=== PATIENT | male | born 1965 | race Caucasian/White ===

== ENCOUNTER 2016-10-15 06:03 | Inpatient (IN) | payer OTHER ==
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
[~2016-10-15 06:03] MED LIST: BUPIVACAINE 0.25% (MDV) 20 ML in SODIUM CHLORIDE 0.9% FLUSH 20 ML IF PRN; BUPIVACAINE 0.25% (MDV) 24 ML, MORPHINE SULFATE 8 MG, EPINEPHRINE 0.3 MG in SODIUM CHLO... IF PRN; CEFAZOLIN SODIUM 2 GRAM PREMIX 100 ML IV PRN; CELECOXIB 200 MG CAPSULE PO ONE; CLONIDINE HCL 0.1 MG/24 HR (7 DAY PATCH) TD SCH; FAMOTIDINE 20 MG TABLET PO ONE; GABAPENTIN 600 MG TABLET PO ONE; IV START KIT ONE; LACTATED RINGERS 1,000 ML ONE; ONDANSETRON 4 MG/2ML 2 ML VIAL IV ONE; OXYCODONE HCL 10 MG TAB.SR PO ONE; POLYMYXIN B SULFATE 500,000 UNITS, BACITRACIN 25,000 UNITS in SODIUM CHLORIDE 3 L IRRIG... IR PRN; TRAMADOL HCL 50 MG TABLET PO ONE; TRANEXAMIC ACID 1,000 MG in SODIUM CHLORIDE 0.9% 100 ML IV PRN
[2016-10-15] MEDS ORDERED: ONDANSETRON 4 MG/2ML 2 ML VIAL ONE ×2 (06:12→07:03)
[2016-10-15] MEDS ORDERED: GABAPENTIN 600 MG TABLET ONE (06:12)
[2016-10-15] MEDS ORDERED: CLONIDINE HCL 0.1 MG/24 HR (7 DAY PATCH) TD ONE (06:12)
[2016-10-15] MEDS ORDERED: OXYCODONE HCL 10 MG TAB.SR PO ONE (06:12)
[2016-10-15] MEDS ORDERED: FAMOTIDINE 20 MG TABLET ONE (06:12)
[2016-10-15] MEDS ORDERED: TRAMADOL HCL 50 MG TABLET ONE (06:12)
[2016-10-15] MEDS ORDERED: CELECOXIB 200 MG CAPSULE ONE (06:12)
[2016-10-15] MEDS ORDERED: CEFAZOLIN SODIUM 2 GRAM PREMIX 100 ML IV ONE (06:13)
[2016-10-15] MEDS ORDERED: LIDOCAINE 1% (PRES FREE) 5 ML VIAL ONE (06:41)
[2016-10-15] MEDS ORDERED: BUPIVACAINE 0.75% SPINAL AMPUL 2 ML ONE (07:03)
[2016-10-15] MEDS ORDERED: METOCLOPRAMIDE HCL 5 MG/ML 2ML VIAL ONE (07:03)
[2016-10-15] MEDS ORDERED: LIDOCAINE 2% (PRES FREE) 5 ML VIAL ONE ×2 (07:03→09:11)
[2016-10-15] MEDS ORDERED: MIDAZOLAM HCL 1 MG/ML 2ML VIAL ONE ×2 (07:03→07:39)
[2016-10-15] MEDS ORDERED: PROPOFOL 40 ML IV ONE ×2 (07:03→11:09)
[2016-10-15] MEDS ORDERED: KETAMINE HCL UD SYRINGE 100 MG/2 ML IV ONE ×2 (07:03→09:04)
[2016-10-15] MEDS ORDERED: GLYCOPYRROLATE 0.2 MG/ML 1ML VIAL ONE (07:03)
[2016-10-15] MEDS ORDERED: DEXAMETHASONE SOD PHOS 4 MG/1 ML VIAL ONE (07:03)
[2016-10-15] MEDS ORDERED: FENTANYL 100 MCG/2 ML VIAL ONE (07:04)
[2016-10-15] MEDS ORDERED: SPINAL PROCEDURAL TRAY 1 EACH ONE (07:35)
[2016-10-15 07:48] LABS: URINE BILIRUBIN NEGATIVE (NEGATIVE); URINE BLOOD NEGATIVE (NEGATIVE); URINE GLUCOSE (UA) NEGATIVE (NEGATIVE); URINE LEUKOCYTE ESTERASE NEGATIVE (NEGATIVE); URINE NITRITE NEGATIVE (NEGATIVE); URINE PROTEIN NEGATIVE (NEGATIVE); URINE UROBILINOGEN NORMAL (0-1 mg/dl)
[2016-10-15 07:51] LABS: URINE APPEARANCE CLEAR; URINE COLOR YELLOW
[2016-10-15] MEDS ORDERED: LACTATED RINGERS 1,000 ML ONE ×2 (07:55→14:33)
[2016-10-15] MEDS ORDERED: PROPOFOL 20 ML IV ONE ×4 (09:10→09:55)
[2016-10-15] MEDS ORDERED: FENTANYL 5 ML ONE (09:35)
[2016-10-15] MEDS ORDERED: PROMETHAZINE HCL 25 MG/ML VIAL IM PRN (10:49)
[2016-10-15] MEDS ORDERED: FENTANYL 100 MCG/2 ML VIAL IV PRN (10:49)
[2016-10-15] MEDS ORDERED: NALOXONE HCL 0.4 MG/ML VIAL IV PRN (10:49)
[2016-10-15] MEDS ORDERED: MEPERIDINE 25 MG/ML SYRINGE IV PRN (10:49)
[2016-10-15] MEDS ORDERED: ATROPINE SULFATE 0.4 MG/1 ML VIAL IV PRN (10:49)
[2016-10-15] MEDS ORDERED: HYDROMORPHONE HCL 1 MG/ML SYRINGE IV PRN (10:49)
[2016-10-15] MEDS ORDERED: ONDANSETRON 4 MG/2ML 2 ML VIAL IV PRN ×2 (10:49→15:05)
[2016-10-15] MEDS ORDERED: LACTATED RINGERS 1,000 ML IV SCH (11:00)
[2016-10-15] MEDS ORDERED: POLYMYXIN B SULFATE 500,000 UNITS, BACITRACIN 25,000 UNITS in SODIUM CHLORIDE 3 L IRRIG... IR PRN (11:13)
--- NOTE | 2016-10-15 11:53 | RAD ---
Exam: Single view right hip INDICATION: Intraoperative flatplate during right hip arthroplasty. FINDINGS: Single AP view of the right hip was obtained at 1051 hours and compared with a similar exam obtained at 1035 hours. Hardware is noted in the region of the acetabulum. Two surgical instruments overlie the pubic symphysis in multiple wires overlie the patient. This examination is otherwise limited for interpretation. IMPRESSION: Single intraoperative image of the right hip was obtained for Dr. Nielsen.
--- NOTE | 2016-10-15 11:54 | RAD ---
Exam: Single view right hip COMPARISON: 12/24/2015 INDICATION: Intraoperative flat view during right total hip arthroplasty. FINDINGS: A single portably obtained view of the right hip demonstrates interval osteotomy at the level of the femoral neck. There is hardware in the region of the acetabulum and 2 surgical instruments in the region of the pubic symphysis. Multiple wires overlie the patient. This examination is otherwise limited for interpretation. IMPRESSION: Single intraoperative view of the right hip was obtained for Dr. Nielsen.
--- NOTE | 2016-10-15 11:56 | RAD ---
Exam: Single view right hip INDICATION: Right total hip intraoperative flat plate #3. FINDINGS: A single AP view of the right hip was obtained at 1106 hours and compared with similar exams obtained same day at 1051 and 1035 hours. Acetabular component is present, and screw is likely present although there is a horizontal structure which obscures the screw. Two surgical instruments overlie the pubic symphysis and multiple wires overlie the patient. This examination is otherwise limited for interpretation. IMPRESSION: Single intraoperative image of the right hip was obtained for Dr. Nielsen.
[2016-10-15] MEDS ORDERED: VANCOMYCIN HCL 1 G/20 ML VIAL ONE (12:35)
--- NOTE | 2016-10-15 13:07 | PCMBPN ---
Brief Post Op Note: Date of Procedure: 10/15/16 Start Time: 0900 Preoperative Diagnosis: 1. right hip osteoarthritis Postoperative Diagnosis: 1. Same Procedure: right total hip arthroplasty Surgeon: Desmond Nielsen MD Assist: Jitendra Teague PA-C Anesthesia: Tru Nelson Findings: as above Condition: stable to PACU Complications: none IV Fluids: 3500 mLs of LR Urine Output: 270 mLs Estimated Blood Loss: 500 mLs Tourniquet Time: N/A Specimens: N/A Implants: Depuy [place] 62 mm cup, Trilock size 9 high offset stem, 40 mm +8.5 biolox head, +4/10 liner. Drains: N/A Desmond Nielsen MD
[2016-10-15] MEDS ORDERED: HYDROMORPHONE HCL 1 MG/ML SYRINGE ONE (14:10)
[2016-10-15] MEDS ORDERED: KETOROLAC TROMETHAMINE 30 MG/ML 1 ML VIAL IV PRN (15:05)
[2016-10-15] MEDS ORDERED: TRAMADOL HCL 50 MG TABLET PO PRN (15:05)
[2016-10-15] MEDS ORDERED: TRAZODONE HCL 50 MG TABLET PO PRN (15:05)
[2016-10-15] MEDS ORDERED: HYDROXYZINE PAMOATE 25 MG CAPSULE PO PRN (15:05)
[2016-10-15] MEDS ORDERED: CALCIUM CARBONATE 500 MG TAB.CHEW PO PRN (15:05)
[2016-10-15 15:28] VITALS: BMI 52.6
--- NOTE | 2016-10-15 15:34 | RAD ---
Exam: Single view pelvis COMPARISON: Intraoperative right hip exams same day and 12/24/2015 INDICATION: Right hip arthroplasty. FINDINGS: A single Sydnee view of the pelvis was obtained. Examination is limited due to patient body habitus. There are postsurgical changes of right hip arthroplasty. No pericomponent fracture is identified. Alignment is expected given the chronic remodeling of the right acetabulum seen previously. Skin wes are present. IMPRESSION: Expected postoperative appearance following right total hip arthroplasty.
[2016-10-15] MEDS ORDERED: NS IV PRN ×2 (15:40)
[2016-10-15] MEDS ORDERED: HETASTARCH 6% IV PRN ×2 (15:40)
[2016-10-15] MEDS: ACETAMINOPHEN 500 MG TABLET PO SCH ×2 (16:42→22:29)
[2016-10-15] MEDS ORDERED: PUMP TUBING ONE (16:50)
[2016-10-15] MEDS: SODIUM CHLOR 0.9% w 40mEq KCL 1,000 ML IV SCH (16:55)
[2016-10-15 17:21] LABS: ARTERIAL BLOOD GAS PCO2 45.1 mmHg (35.0-45.0); ARTERIAL BLOOD GAS pH 7.352 (7.350-7.450)
[2016-10-15 17:22] LABS: ARTERIAL BLOOD GAS BASE EXCESS -1.2 mmol/L (-2.0-2.0); ARTERIAL BLOOD GAS HCO3 24.5 mmol/L (22.0-28.0); ARTERIAL BLOOD GAS PO2 77.2 mmHg (80.0-90.0)
[2016-10-15] MEDS: CEFAZOLIN SODIUM 1 GRAM PREMIX 1 G in Premix (D5W) 50 ml 1 EACH IV SCH (17:53)
[2016-10-15] MEDS: PANTOPRAZOLE SODIUM 40 MG VIAL IV SCH (17:53)
[2016-10-15] MEDS ORDERED: IRON SUCROSE COMPLEX 200 MG in SODIUM CHLORIDE 0.9% 100 ML IV ONE (18:00)
--- NOTE | 2016-10-15 20:56 | CONS ---
ABIMAEL DAMICO [id number] CHIEF COMPLAINT: Please assist with postoperative care after right total hip arthroplasty. REQUESTING PHYSICIAN: Dr. Nielsen PRIMARY CARE PROVIDER: TRICIA Blunt HISTORY OF PRESENT ILLNESS: The patient is a 51-year-old male with a complex social situation who underwent a right total hip arthroplasty for avascular necrosis. Postoperatively he is noted to have some lower blood pressures and some concern for hypoventilation associated with his elevated BMI at 52.6. He was noted to be quite sleepy on a nonrebreather, although his sats have been okay. He was moved to the [facility] and is being seen there, but is unable to answer much in the way of questions. PAST MEDICAL HISTORY: Remarkable for: 1. Hepatitis C. 2. Morbid obesity. 3. Fibromyalgia. 4. A previous history of heroin use. PAST SURGICAL HISTORY: Remarkable for: 1. Bilateral shoulder arthroscopy. 2. Hernia repair. 3. Carpal tunnel surgery. ALLERGIES: No known drug allergies. MEDICATIONS: 1. B-12, 1,000 mcg two by mouth daily. 2. Hydrochlorothiazide 25 mg daily. 3. Ibuprofen 800 mg by mouth three times a day. 4. Lisinopril 40 mg by mouth daily. 5. Metformin 500 mg two by mouth twice a day. 6. Omeprazole 20 mg by mouth twice a day. 7. Oxycodone 5 mg two by mouth every 8 hours as needed. 8. Triamcinolone topically for eczema. 9. Vitamin D 50,000 units weekly. SOCIAL HISTORY: He is reported to be unemployed. A former smoker. Homeless, with two dogs. Alcohol use is not listed. His marital status is not listed. FAMILY HISTORY: Not obtained. REVIEW OF SYSTEMS: Not obtained due to sedation at this time. PHYSICAL EXAMINATION: GENERAL: A snoring male who responds some to stimulation. VITAL SIGNS: Temperature 98.2. Saturations range from 87-95% on room air after the nonrebreather is removed. Respirations 15. Blood pressure 163/80, although he was noted to have some low blood pressures postoperatively, as low as 60/40 at 3:15 P.M., but this was corrected within less than 20 minutes. HEENT: Head is shaved. Face with some tinea faciei. Tinea barbae is suggested. Eyes and tympanic membranes are unremarkable bilaterally. Eyes with some conjunctival edema bilaterally. Pupils are smaller. Eyes open some for stimulation, but generally did not stay awake. Nose is unremarkable. Mouth, dentition is fair. Several teeth are absent or broken. No lesions are noted. NECK: Supple, thick and snoring. LUNGS: Coarse snoring breathing bilaterally. HEART: Tachycardiac, but regular. ABDOMEN: Obese, nontender and nondistended. Bowel sounds are normal. No rebound and no guarding evident, but difficult to assess. Large pannus, with some erythema underneath. Scrotum large, with some edema suggested. : Urine is straw yellow. Babcock is draining otherwise normally. EXTREMITIES: Legs with dressing intact. Legs with compression stockings and ICDs. Scattered tattoos. NEUROLOGIC: Generally does not awaken, but does respond to stimulation such as ABG draw. LABORATORIES: Labs so far; glucose 111 and 158, urinalysis was normal. X-RAY: Expected postoperative appearance status post right total hip arthroplasty. ASSESSMENT/PLAN: 1. Postop day zero, status post right total hip arthroplasty. Some persisting sedation postoperatively, with low blood pressure corrected, but still with sedation. 2. Sedation postoperatively. Suspect combined medication effects and C02 retention, in the process of checking ABG. Anticipate use of BiPAP while in the IMCU. 3. History of diabetes mellitus Type-2. Plan holding metformin and use insulin and sliding scale for right now. His A1C was 6.3 in August of 2016. 4. BMI of 52. Morbid obesity is certainly playing a role in his risk for C02 retention and with rehab care. 5. History of hypertension. Perimeters written for medicines. 6. Fluid overload suggested. Clinically he did receive 3,500 mL intraoperatively. Await ABGs, and could consider whether diuresis is desired. Will monitor I's and O's and daily weights. 7. Venous thrombosis prophylaxis, mechanical. 8. Hepatitis C virus positive. The patient did have a normal INR preoperatively. 9. Suspected hypercapnia. Await ABG and anticipate use of BiPAP for this. 10. Homeless. Appreciate home care administrator's and social work efforts. 11. Mild anemia, with borderline microcytic indices preoperatively. His hemoglobin was 11.0 and MCV of 82.3 preoperatively. He did have a ferritin that was on the low side of normal preoperatively. Anticipate a single dose of Venofer now, and then oral supplementation to follow. cc: Liyah Mederos, IT ADMINISTRATIVE ASSISTANT-BC Dr. Desmond Nielsen
[2016-10-15] MEDS ORDERED: OXYCODONE HCL 10 MG TAB.SR PO SCH ×2 (21:00→22:25)
[2016-10-15] MEDS: DOCUSATE SODIUM 100 MG CAPSULE PO SCH (22:29)
[2016-10-15] MEDS: ASCORBIC ACID 500 MG TABLET PO SCH (22:29)
[2016-10-15] MEDS: CLOTRIMAZOLE 1% 15 APPLIC/15 G CREAM TP SCH (22:38)
[2016-10-15] MEDS: INSULIN ASPART (DOSE) 100 UNITS/1 ML SUB-Q PRN (23:47)
[2016-10-16] MEDS: HYDROMORPHONE HCL 0.5 MG/0.5 ML SYRINGE IV PRN ×3 (00:14→07:05)
[2016-10-16] MEDS: CEFAZOLIN SODIUM 1 GRAM PREMIX 1 G in Premix (D5W) 50 ml 1 EACH IV SCH (00:35)
[2016-10-16] MEDS: SODIUM CHLOR 0.9% w 40mEq KCL 1,000 ML IV SCH (03:24)
[2016-10-16] MEDS: ACETAMINOPHEN 500 MG TABLET PO SCH ×6 (03:26→21:37)
[2016-10-16] MEDS ORDERED: REMOVE PATCH 1 EACH UNIT TD SCH (06:00)
[2016-10-16 06:24] LABS: HEMATOCRIT 27.2 % (32.0-52.0); HEMOGLOBIN 8.6 gm/l (14.0-18.0); MEAN CELL VOLUME 83.4 fl (80.0-94.0); MEAN CORPUSCULAR HEMOGLOBIN 26.4 pg (27.0-31.0); MEAN CORPUSCULAR HGB CONC 31.6 g/dl (33.0-37.0); RED CELL DISTRIBUTION WIDTH 15.3 % (11.5-14.5)
[2016-10-16 06:43] LABS: CALCIUM 8.4 mg/dL (8.6-10.3); MAGNESIUM 1.8 mg/dL (1.9-2.7)
[2016-10-16] MEDS ORDERED: TRAMADOL HCL 50 MG TABLET PO PRN (08:08)
--- NOTE | 2016-10-16 08:14 | PDOC43 ---
- Subjective Chief Complaint: R PAKO Pt reports a fair amount of pain from hip. No Gi c/o. No respiratory c/o. Hasn' t been up yet with PT. - Objective Vital Signs Temperature 98.3 F 10/16/16 04:09 Pulse Rate 98 10/16/16 04:09 Respiratory Rate 17 10/16/16 04:09 Blood Pressure 143/67 10/16/16 04:09 O2 Saturation by Pulse Oximetry 96 10/16/16 04:09 Oxygen Delivery Method Nasal Cannula Oxygen Flow Rate 1 Vital Signs Last 12 Hours Temp Pulse Resp BP Pulse Ox 10/16/16 04:09 98.3 F 98 17 143/67 96 10/16/16 03:32 18 10/16/16 02:03 88 19 114/52 94 10/16/16 00:08 98.5 F 87 16 115/44 94 10/15/16 22:18 99.4 F 91 12 160/68 94 10/15/16 22:00 13 Intake and Output 10/14/16 10/15/16 10/16/16 23:59 23:59 23:59 Intake Total 4480 2122 Output Total 2845 2625 Balance 1635 -503 General: Alert, Cooperative, Mild Distress (discomfort), Other (generalized edema appears to have improved) HEENT: Atraumatic Lungs: Clear to Auscultation Bilaterally Cardiovascular: Regular Rate and Rhythm Abdomen: Soft, Normal Bowel Sounds, Non-Distended Wound: Dressing Clean/Dry/Intact, Other (Ortho PA reports doing well.) Neurological: Normal Speech Psych/Mental Status: Normal Mood, Anxious (about doing PT) Laboratory 10/16/16 05:30 10/16/16 05:30 10/16/16 10/16/16 10/15/16 07:04 05:30 23:42 RBC 3.26 L MCH 26.4 L MCHC 31.6 L RDW 15.3 H pCO2 pO2 Anion Gap 7 L POC Capillary Glucose 172 H 124 H 333 H Calcium 8.4 L Magnesium 1.8 L 10/15/16 10/15/16 10/15/16 18:37 16:54 13:48 RBC MCH MCHC RDW pCO2 45.1 H pO2 77.2 L Anion Gap POC Capillary Glucose 108 H 158 H Calcium Magnesium Current Medications: Current meds reviewed in EMR. Active Medications Acetaminophen (Tylenol) 1,000 mg PO Q6H COUNT INCLUDES THE [facility] Last Admin: 10/16/16 03:26 Dose: 1,000 mg Ascorbic Acid (Vitamin C) 500 mg PO BID COUNT INCLUDES THE [facility] Last Admin: 10/15/16 22:29 Dose: 500 mg Aspirin (Ecotrin) 325 mg PO DAILY COUNT INCLUDES THE [facility] Bisacodyl (Dulcolax) 10 mg KS DAILY PRN PRN Reason: If no BM by POD#3 Calcium Carbonate/Glycine (Tums) 1,000 - 2,000 mg PO Q2H PRN PRN Reason: Heartburn/Indigestion Clotrimazole (Lotrimin) 1 applic TP BID COUNT INCLUDES THE [facility] Last Admin: 10/15/16 22:38 Dose: 1 applic Docusate Sodium (Colace) 100 mg PO BID COUNT INCLUDES THE [facility] Last Admin: 10/15/16 22:29 Dose: 100 mg Ferrous Sulfate (Ferrous Sulfate) 325 mg PO BID COUNT INCLUDES THE [facility] Hydrochlorothiazide (Hydrochlorothiazide) 25 mg PO DAILY COUNT INCLUDES THE [facility] Hydromorphone HCl (Dilaudid) 0.5 mg IV Q1H PRN PRN Reason: Severe/Breakthrough Pain Last Admin: 10/16/16 07:05 Dose: 0.5 mg Hydroxyzine Pamoate (Vistaril) 25 - 50 mg PO Q4H PRN PRN Reason: itching/anxiety Potassium Chloride/Sodium Chloride (Sodium Chloride 0.9% With 40meq Kcl) 1,000 mls @ 100 mls/hr IV .Q10H COUNT INCLUDES THE [facility] Last Admin: 10/16/16 03:24 Dose: 100 mls/hr Hetastarch/Sodium Chloride 500 (ml/ Sodium Chloride) 500 mls @ 500 mls/hr IV Q1H PRN PRN Reason: Hypotension Insulin Aspart (Novolog (Dose)) 0 units SUB-Q Q6HR PRN; Protocol PRN Reason: Blood Sugar > Last Admin: 10/15/16 23:47 Dose: 5 units Ketorolac Tromethamine (Toradol) 30 mg IV Q6H PRN PRN Reason: Pain (Moderate/Severe) Stop: 10/16/16 12:54 Lisinopril (Prinivil) 40 mg PO DAILY COUNT INCLUDES THE [facility] Magnesium Hydroxide (Milk Of Magnesia) 30 ml PO DAILY PRN PRN Reason: If no BM by evening of POD#1 Miscellaneous (Remove Patch) 1 each TD X1 ONE Stop: 10/16/16 12:55 Multivitamins (One-A-Day) 1 tab PO DAILY COUNT INCLUDES THE [facility] Ondansetron HCl (Zofran) 4 - 6 mg IV Q6H PRN PRN Reason: Nausea/Vomiting Oxycodone HCl (Roxicodone) 5 - 15 mg PO Q3H PRN PRN Reason: Pain (Moderate) Oxycodone HCl (Oxycontin) 10 mg PO Q12HR COUNT INCLUDES THE [facility] Last Admin: 10/15/16 22:42 Dose: 10 mg Pantoprazole Sodium (Protonix) 40 mg IV Q24H COUNT INCLUDES THE [facility] Last Admin: 10/15/16 17:53 Dose: 40 mg Sodium Chloride (Normal Saline 10ml Flush) 10 - 50 ml IV PRN PRN PRN Reason: IV Flush Last Admin: 10/16/16 07:05 Dose: 10 ml Sodium Chloride (Normal Saline 10ml Flush) 10 ml IV Q8HR COUNT INCLUDES THE [facility] Last Admin: 10/16/16 00:41 Dose: Not Given Tramadol HCl (Ultram) 50 mg PO Q6H PRN PRN Reason: Pain (Mild) Trazodone HCl (Desyrel) 25 mg PO BEDTIME PRN PRN Reason: Insomnia - Problems: Assessment/Plan (1) Status post total hip replacement, right Status: Acute Assessment/Plan: Appreciate ortho, PT/OT and nursing care. Ortho will revise pain regimen; pt may have degree opioid tolerance. (2) Obesity, morbid, BMI 50 or higher Status: Chronic Assessment/Plan: With suspected obesity/hypoventilation. (3) Hypertension Qualifiers: Hypertension type: essential hypertension Qualifier Code: (I10) Essential (primary) hypertension Status: Acute Assessment/Plan: parameters for meds. (4) Hepatitis C Qualifiers: Viral hepatitis chronicity: unspecified Hepatic coma status: without hepatic coma Qualifier Code: (B19.20) Unspecified viral hepatitis C without hepatic coma Status: Chronic Assessment/Plan: INR normal. VTE Prophylaxis: aspirin for VTE prophylaxis. Disposition: anticipate SNF; but further care may be an issue placement, with homeless status. Appreciate SW, health care coordinator efforts.
[2016-10-16] MEDS: MULTIVITAMINS 1 TAB TABLET PO SCH (08:25)
[2016-10-16] MEDS: FERROUS SULFATE (65 Fe) 325 MG TABLET PO SCH ×2 (08:25→20:36)
[2016-10-16] MEDS: LISINOPRIL 20 MG TABLET PO SCH (08:25)
[2016-10-16] MEDS: DOCUSATE SODIUM 100 MG CAPSULE PO SCH ×2 (08:25→20:35)
[2016-10-16] MEDS: HYDROCHLOROTHIAZIDE 25 MG TABLET PO SCH (08:25)
[2016-10-16] MEDS: CLOTRIMAZOLE 1% 15 APPLIC/15 G CREAM TP SCH ×2 (08:25→20:35)
[2016-10-16] MEDS: ASPIRIN (ENTERIC COATED) 325 MG TABLET.EC PO SCH (08:25)
[2016-10-16] MEDS: ASCORBIC ACID 500 MG TABLET PO SCH ×2 (08:26→20:36)
[2016-10-16] MEDS: OXYCODONE HCL 10 MG TAB.SR PO SCH ×2 (08:36→20:36)
--- NOTE | 2016-10-16 09:55 | PDOC43 ---
- Subjective Findings: POD1 after Right PAKO. Patient reports a pain of 7/10 and not sure he can get out of bed with therapy. Denies other complaint. Subjective: Denies Pain Tolerable, Denies Chest Pain, Denies Shortness of Breath - Objective Vital Signs Temperature 97 F 10/16/16 07:45 Pulse Rate 95 10/16/16 07:45 Respiratory Rate 22 10/16/16 08:30 Blood Pressure 103/52 10/16/16 07:45 O2 Saturation by Pulse Oximetry 96 10/16/16 07:49 Oxygen Delivery Method Nasal Cannula Oxygen Flow Rate 1 Laboratory 10/16/16 05:30 10/16/16 05:30 10/16/16 10/16/16 10/15/16 07:04 05:30 23:42 RBC 3.26 L MCH 26.4 L MCHC 31.6 L RDW 15.3 H pCO2 pO2 Anion Gap 7 L POC Capillary Glucose 172 H 124 H 333 H Calcium 8.4 L Magnesium 1.8 L 10/15/16 10/15/16 10/15/16 18:37 16:54 13:48 RBC MCH MCHC RDW pCO2 45.1 H pO2 77.2 L Anion Gap POC Capillary Glucose 108 H 158 H Calcium Magnesium Active Medication Orders Category Date Time Status Acetaminophen [Tylenol] Med 10/15/16 16:00 Active 1,000 mg PO Q6H Ascorbic Acid [Vitamin C] Med 10/15/16 21:00 Active 500 mg PO BID Aspirin (Enteric Coated) [Ecotrin] Med 10/16/16 09:00 Active 325 mg PO DAILY Bisacodyl [Dulcolax] Med 10/18/16 12:54 Active 10 mg [place] DAILY PRN Calcium Carbonate [Tums] Med 10/15/16 15:05 Active 1,000 - 2,000 mg PO Q2H PRN Clotrimazole 1% Top Cream [Lotrimin] Med 10/15/16 21:00 Active 1 applic TP BID Docusate Sodium [Colace] Med 10/15/16 21:00 Active 100 mg PO BID FERROUS SULFATE (65 Fe) [Ferrous Sulfate] Med 10/16/16 09:00 Active 325 mg PO BID Hydrochlorothiazide Med 10/16/16 09:00 Active 25 mg PO DAILY Hydromorphone HCl [Dilaudid] Med 10/15/16 15:05 Active 0.5 mg IV Q1H PRN Hydroxyzine Pamoate [Vistaril] Med 10/15/16 15:05 Active 25 - 50 mg PO Q4H PRN Insulin Aspart (Dose) [Novolog (Dose)] Med 10/15/16 17:14 Active See Protocol SUB-Q Q6HR PRN Ketorolac Tromethamine [Toradol] Med 10/15/16 15:05 Active 30 mg IV Q6H PRN Lisinopril [Prinivil] Med 10/16/16 09:00 Active 40 mg PO DAILY Magnesium Hydroxide [Milk of Magnesia] Med 10/16/16 12:54 Active 30 ml PO DAILY PRN Multivitamins [One-A-Day] Med 10/16/16 09:00 Active 1 tab PO DAILY Ondansetron 4 mg/2ml Vial [Zofran] Med 10/15/16 15:05 Active 4 - 6 mg IV Q6H PRN Oxycodone HCl [Roxicodone] Med 10/15/16 15:05 Active 5 - 15 mg PO Q3H PRN Oxycodone Sr [Oxycontin] Med 10/16/16 08:08 Active 20 mg PO Q12HR Pantoprazole Sodium [Protonix] Med 10/15/16 17:30 Active 40 mg IV Q24H Remove Patch Med 10/16/16 12:54 Once 1 each TD X1 ONE Sodium Chloride 0.9% Flush [Normal Saline 10ml Flush] Med 10/15/16 15:05 Active 10 - 50 ml IV PRN PRN Sodium Chloride 0.9% Flush [Normal Saline 10ml Flush] Med 10/15/16 17:00 Active 10 ml IV Q8HR Tramadol HCl [Ultram] Med 10/16/16 08:08 Active 100 mg PO Q6H PRN Trazodone HCl [Desyrel] Med 10/15/16 15:05 Active 25 mg PO BEDTIME PRN Intake and Output 10/14/16 10/15/16 10/16/16 23:59 23:59 23:59 Intake Total 4480 2622 Output Total 2845 2625 Balance 1635 -3 Lungs: Normal Air Movement Skin: Normal Color, Warm, Dry - Right Lower Extremity Incision: Dressing Clean/Dry/Intact, Well Approximated, Mike Intact, No Dressing Saturated, No Erythema, No Rash, No Ecchymosis Motor: Extensor Hallucis Longus: 5/5, Tibialis Anterior: 5/5, Gastrocnemius: 5/5 Gross Sensation to Light Touch: Present: Deep Peroneal Nerve, Superficial Peroneal Nerve - Problems (1) Status post total hip replacement, right Status: Acute - Additional Comments 1. Physical Therapy: WBAT with [facility], Continue to mobilize for discharge home Thursday. 2. Pain Control: Multimodal pain control as needed. Medication change to increase OxyContin to 20mg q12 hours, Tramadol 100mg q6 hours, hold Dilaudid. 3. DVT Prophylaxis: ASA 325mg daily, mobilization 4. Disposition: Hospitalist working on transfer from ICU to Med/Surg today. Plan for discharge home Thursday. 5. Medical Issues: Hospitalist involved. No new ortho problems. Pain control medications changed today.
[2016-10-16] MEDS: OXYCODONE HCL 5 MG TABLET PO PRN ×4 (11:50→21:38)
[2016-10-16] MEDS ORDERED: REMOVE PATCH 1 EACH UNIT TD ONE (12:54)
[2016-10-16] MEDS ORDERED: MAGNESIUM HYDROXIDE 30 ML UDCUP PO PRN (12:54)
[2016-10-16] MEDS: PANTOPRAZOLE SODIUM 40 MG VIAL IV SCH (16:48)
[2016-10-16] MEDS: INSULIN ASPART (DOSE) 100 UNITS/1 ML SUB-Q PRN (22:00)
[2016-10-17] MEDS: OXYCODONE HCL 5 MG TABLET PO PRN ×7 (01:44→20:43)
[2016-10-17] MEDS: ACETAMINOPHEN 500 MG TABLET PO SCH ×3 (03:42→16:35)
[2016-10-17 07:10] LABS: HEMATOCRIT 27.4 % (32.0-52.0); HEMOGLOBIN 8.8 gm/l (14.0-18.0)
--- NOTE | 2016-10-17 08:48 | PDOC43 ---
- Subjective Findings: POD2 after Right PAKO. No new complaint today. Subjective: Reports Pain Tolerable, Denies Chest Pain, Denies Shortness of Breath - Objective Vital Signs Temperature 98.5 F 10/17/16 07:23 Pulse Rate 93 10/17/16 07:23 Respiratory Rate 18 10/17/16 07:23 Blood Pressure 124/68 10/17/16 07:23 O2 Saturation by Pulse Oximetry 93 10/17/16 07:23 Oxygen Delivery Method Room Air Oxygen Flow Rate 0 Laboratory 10/17/16 06:15 10/16/16 05:30 10/17/16 10/16/16 10/16/16 07:17 21:51 11:47 POC Capillary Glucose 154 H 215 H 172 H Active Medication Orders Category Date Time Status Acetaminophen [Tylenol] Med 10/15/16 16:00 Active 1,000 mg PO Q6H Ascorbic Acid [Vitamin C] Med 10/15/16 21:00 Active 500 mg PO BID Aspirin (Enteric Coated) [Ecotrin] Med 10/16/16 09:00 Active 325 mg PO DAILY Bisacodyl [Dulcolax] Med 10/18/16 12:54 Active 10 mg [place] DAILY PRN Calcium Carbonate [Tums] Med 10/15/16 15:05 Active 1,000 - 2,000 mg PO Q2H PRN Clotrimazole 1% Top Cream [Lotrimin] Med 10/15/16 21:00 Active 1 applic TP BID Docusate Sodium [Colace] Med 10/15/16 21:00 Active 100 mg PO BID FERROUS SULFATE (65 Fe) [Ferrous Sulfate] Med 10/16/16 09:00 Active 325 mg PO BID Hydrochlorothiazide Med 10/16/16 09:00 Active 25 mg PO DAILY Hydromorphone HCl [Dilaudid] Med 10/15/16 15:05 Active 0.5 mg IV Q1H PRN Hydroxyzine Pamoate [Vistaril] Med 10/15/16 15:05 Active 25 - 50 mg PO Q4H PRN Insulin Aspart (Dose) [Novolog (Dose)] Med 10/15/16 17:14 Active See Protocol SUB-Q Q6HR PRN Lisinopril [Prinivil] Med 10/16/16 09:00 Active 40 mg PO DAILY Magnesium Hydroxide [Milk of Magnesia] Med 10/16/16 12:54 Active 30 ml PO DAILY PRN Multivitamins [One-A-Day] Med 10/16/16 09:00 Active 1 tab PO DAILY Ondansetron 4 mg/2ml Vial [Zofran] Med 10/15/16 15:05 Active 4 - 6 mg IV Q6H PRN Oxycodone HCl [Roxicodone] Med 10/15/16 15:05 Active 5 - 15 mg PO Q3H PRN Oxycodone Sr [Oxycontin] Med 10/16/16 08:08 Active 20 mg PO Q12HR Pantoprazole Sodium [Protonix] Med 10/15/16 17:30 Active 40 mg IV Q24H Sodium Chloride 0.9% Flush [Normal Saline 10ml Flush] Med 10/15/16 15:05 Active 10 - 50 ml IV PRN PRN Sodium Chloride 0.9% Flush [Normal Saline 10ml Flush] Med 10/15/16 17:00 Active 10 ml IV Q8HR Tramadol HCl [Ultram] Med 10/16/16 08:08 Active 100 mg PO Q6H PRN Trazodone HCl [Desyrel] Med 10/15/16 15:05 Active 25 mg PO BEDTIME PRN Intake and Output 10/15/16 10/16/16 10/17/16 23:59 23:59 23:59 Intake Total 4480 4988 1996 Output Total 7861 7117 2550 Balance 2100 -5651 -574 General: Afebrile Lungs: Normal Air Movement Skin: Normal Color, Warm, Dry - Right Lower Extremity Incision: Dressing Clean/Dry/Intact, Well Approximated, [place] Intact, No Dressing Saturated Motor: Extensor Hallucis Longus: 5/5, Tibialis Anterior: 5/5, Gastrocnemius: 5/5 Gross Sensation to Light Touch: Present: Deep Peroneal Nerve, Superficial Peroneal Nerve - Problems (1) Status post total hip replacement, right Status: Acute - Additional Comments POD2 after Right PAKO 1. Physical Therapy: WBAT with [facility], Continue to mobilize for discharge/transfer Thursday. 2. Pain Control: Multimodal pain control as needed. Medication change to increase OxyContin to 20mg q12 hours, Tramadol 100mg q6 hours, hold Dilaudid. 3. DVT Prophylaxis: ASA 325mg daily, mobilization 4. Disposition: Plan for discharge home/transfer to SNF/[facility] Thursday. 5. Medical Issues: Hospitalist involved. No new ortho problems.
[2016-10-17] MEDS: HYDROCHLOROTHIAZIDE 25 MG TABLET PO SCH (09:32)
[2016-10-17] MEDS: FERROUS SULFATE (65 Fe) 325 MG TABLET PO SCH ×2 (09:32→20:42)
[2016-10-17] MEDS: ASPIRIN (ENTERIC COATED) 325 MG TABLET.EC PO SCH (09:32)
[2016-10-17] MEDS: DOCUSATE SODIUM 100 MG CAPSULE PO SCH ×2 (09:33→20:43)
[2016-10-17] MEDS: MULTIVITAMINS 1 TAB TABLET PO SCH (09:33)
[2016-10-17] MEDS: OXYCODONE HCL 10 MG TAB.SR PO SCH ×2 (09:33→20:42)
[2016-10-17] MEDS: ASCORBIC ACID 500 MG TABLET PO SCH ×2 (09:34→20:42)
[2016-10-17] MEDS: CLOTRIMAZOLE 1% 15 APPLIC/15 G CREAM TP SCH ×2 (09:34→23:27)
[2016-10-17] MEDS: LISINOPRIL 20 MG TABLET PO SCH (09:38)
--- NOTE | 2016-10-17 16:02 | PDOC43 ---
- Subjective Chief Complaint: R PAKO 10/[address] Nielsen Working well with PT, had some faintness at first but got better with activity. - Objective Vital Signs Temperature 98.6 F 10/17/16 15:41 Pulse Rate 94 10/17/16 15:41 Respiratory Rate 18 10/17/16 15:41 Blood Pressure 128/85 10/17/16 15:41 O2 Saturation by Pulse Oximetry 93 10/17/16 15:41 Oxygen Delivery Method Room Air Oxygen Flow Rate 0 Intake and Output 10/16/16 10/17/16 10/18/16 06:59 06:59 06:59 Intake Total 6602 4862 Output Total 5444 7009 1999 Balance 4528 -5564 -1999 General: Alert, Oriented x3, Cooperative, No Acute Distress HEENT: Mucous membr. moist/pink Lungs: Clear to Auscultation Bilaterally Cardiovascular: Regular Rate and Rhythm Abdomen: Soft, Normal Bowel Sounds, No Tenderness, No Masses Extremities: Edema (trace), Normal Pulses Wound: Dressing Clean/Dry/Intact (on right hip) Neurological: Normal Speech Psych/Mental Status: Normal Mood Laboratory 10/17/16 06:15 10/16/16 05:30 10/17/16 10/17/16 10/16/16 13:39 07:17 21:51 POC Capillary Glucose 195 H 154 H 215 H Current Medications: Current meds reviewed in EMR. - Problems: Assessment/Plan (1) Status post total hip replacement, right Status: Acute Assessment/Plan: Appreciate ortho, PT/OT and nursing care. Appears to be doing well. (2) Hypertension Qualifiers: Hypertension type: essential hypertension Qualifier Code: (I10) Essential (primary) hypertension Status: Chronic Assessment/Plan: Well controlled (3) Obesity, morbid, BMI 50 or higher Status: Chronic Assessment/Plan: With obesity/hypoventilation syndrome, complicates care. (4) Acute blood loss anemia Status: Acute Assessment/Plan: moderate degree but stable and not symptomatic. (5) DM2 (diabetes mellitus, type 2) Qualifiers: Diabetes mellitus complication status: without complication Diabetes mellitus truck terminal manager insulin use: without long-term use Qualifier Code: (E11.9 ) Type 2 diabetes mellitus without complications Status: Chronic Assessment/Plan: Metformin on hold, continue insulin. (6) GERD (gastroesophageal reflux disease) Qualifiers: Esophagitis presence: esophagitis presence not specified Qualifier Code : (K21.9) Gastro-esophageal reflux disease without esophagitis Status: Chronic Assessment/Plan: Change pantoprazole to PO VTE Prophylaxis: aspirin for VTE prophylaxis. and foot pumps while in hospital Disposition: Anticipating transfer to [facility] Friday 10/20
[2016-10-17] MEDS: PANTOPRAZOLE 40 MG TABLET DR PO SCH ×2 (16:35→18:04)
[2016-10-18] MEDS: OXYCODONE HCL 5 MG TABLET PO PRN ×6 (00:09→20:27)
[2016-10-18] MEDS: ACETAMINOPHEN 500 MG TABLET PO SCH ×5 (00:09→22:39)
[2016-10-18 06:54] LABS: HEMATOCRIT 28.6 % (32.0-52.0)
[2016-10-18] MEDS: PANTOPRAZOLE 40 MG TABLET DR PO SCH (08:13)
[2016-10-18] MEDS: ASPIRIN (ENTERIC COATED) 325 MG TABLET.EC PO SCH (08:14)
[2016-10-18] MEDS: LISINOPRIL 20 MG TABLET PO SCH (08:14)
[2016-10-18] MEDS: DOCUSATE SODIUM 100 MG CAPSULE PO SCH ×2 (08:15→20:21)
[2016-10-18] MEDS: HYDROCHLOROTHIAZIDE 25 MG TABLET PO SCH (08:15)
[2016-10-18] MEDS: ASCORBIC ACID 500 MG TABLET PO SCH ×2 (08:15→20:21)
[2016-10-18] MEDS: FERROUS SULFATE (65 Fe) 325 MG TABLET PO SCH ×2 (08:15→20:21)
[2016-10-18] MEDS: OXYCODONE HCL 10 MG TAB.SR PO SCH ×2 (08:15→20:21)
[2016-10-18] MEDS: MULTIVITAMINS 1 TAB TABLET PO SCH (08:16)
[2016-10-18] MEDS: CLOTRIMAZOLE 1% 15 APPLIC/15 G CREAM TP SCH ×2 (08:19→20:22)
--- NOTE | 2016-10-18 10:16 | PDOC43 ---
- Subjective Findings: Patient doing fairly well this AM, having some pain and requesting an increase in pain meds, otherwise is doing well. Did well walking with PT yesterday and is encouraged with the ROM and strength of the hip already. No events overnight , no new complaints. Subjective: Reports Flatus, Reports Pain Tolerable, Denies Chest Pain, Denies Shortness of Breath - Objective Vital Signs Temperature 98.4 F 10/18/16 07:31 Pulse Rate 96 10/18/16 07:31 Respiratory Rate 24 10/18/16 07:31 Blood Pressure 104/77 10/18/16 07:31 O2 Saturation by Pulse Oximetry 94 10/18/16 07:31 Oxygen Delivery Method Room Air Oxygen Flow Rate 0 Laboratory 10/18/16 05:30 10/16/16 05:30 10/18/16 10/17/16 10/17/16 07:27 23:21 18:06 POC Capillary Glucose 183 H 135 H 122 H 10/17/16 13:39 POC Capillary Glucose 195 H Active Medication Orders Category Date Time Status Acetaminophen [Tylenol] Med 10/15/16 16:00 Active 1,000 mg PO Q6H Ascorbic Acid [Vitamin C] Med 10/15/16 21:00 Active 500 mg PO BID Aspirin (Enteric Coated) [Ecotrin] Med 10/16/16 09:00 Active 325 mg PO DAILY Bisacodyl [Dulcolax] Med 10/18/16 12:54 Active 10 mg [place] DAILY PRN Calcium Carbonate [Tums] Med 10/15/16 15:05 Active 1,000 - 2,000 mg PO Q2H PRN Clotrimazole 1% Top Cream [Lotrimin] Med 10/15/16 21:00 Active 1 applic TP BID Docusate Sodium [Colace] Med 10/15/16 21:00 Active 100 mg PO BID FERROUS SULFATE (65 Fe) [Ferrous Sulfate] Med 10/16/16 09:00 Active 325 mg PO BID Hydrochlorothiazide Med 10/16/16 09:00 Active 25 mg PO DAILY Hydromorphone HCl [Dilaudid] Med 10/15/16 15:05 Active 0.5 mg IV Q1H PRN Hydroxyzine Pamoate [Vistaril] Med 10/15/16 15:05 Active 25 - 50 mg PO Q4H PRN Insulin Aspart (Dose) [Novolog (Dose)] Med 10/15/16 17:14 Active See Protocol SUB-Q Q6HR PRN Lisinopril [Prinivil] Med 10/16/16 09:00 Active 40 mg PO DAILY Magnesium Hydroxide [Milk of Magnesia] Med 10/16/16 12:54 Active 30 ml PO DAILY PRN Multivitamins [One-A-Day] Med 10/16/16 09:00 Active 1 tab PO DAILY Ondansetron 4 mg/2ml Vial [Zofran] Med 10/15/16 15:05 Active 4 - 6 mg IV Q6H PRN Oxycodone HCl [Roxicodone] Med 10/15/16 15:05 Active 5 - 15 mg PO Q3H PRN Oxycodone Sr [Oxycontin] Med 10/16/16 08:08 Active 20 mg PO Q12HR Pantoprazole Sodium [Protonix] Med 10/17/16 16:00 Active 40 mg PO DAILY Sodium Chloride 0.9% Flush [Normal Saline 10ml Flush] Med 10/15/16 15:05 Active 10 - 50 ml IV PRN PRN Sodium Chloride 0.9% Flush [Normal Saline 10ml Flush] Med 10/15/16 17:00 Active 10 ml IV Q8HR Tramadol HCl [Ultram] Med 10/16/16 08:08 Active 100 mg PO Q6H PRN Trazodone HCl [Desyrel] Med 10/15/16 15:05 Active 25 mg PO BEDTIME PRN Intake and Output 10/16/16 10/17/16 10/18/16 23:59 23:59 23:59 Intake Total 4936 3396 1360 Output Total 7125 5900 1432 [facility] -2137 -2504 -72 General: Afebrile, No Acute Distress Lungs: Normal Air Movement Abdomen: Soft, No Tenderness Skin: Normal Color, Warm, Dry, Intact Neurological: Grossly Intact, Alert, Oriented x 4, Normal Speech Psych/Mental Status: Normal Affect, Normal Mood - Right Lower Extremity Incision: Dressing Clean/Dry/Intact, No Drainage Motor: Extensor Hallucis Longus: 5/5, Tibialis Anterior: 5/5, Gastrocnemius: 5/5 , Peroneals: 5/5, Quadriceps: 4/5 Gross Sensation to Light Touch: Present: Deep Peroneal Nerve, Superficial Peroneal Nerve, Medial Plantar Nerve, Lateral Plantar Nerve, Sural Nerve, Saphenous Nerve Capillary Refill: < 3 Seconds Motion: 10-70 (posterior hip precautions) - Additional Comments POD3 after Right PAKO 1. Physical Therapy: WBAT with [facility], Continue to mobilize for discharge/transfer Thursday. 2. Pain Control: Multimodal pain control as needed. Medication change to increase OxyContin to 20mg q12 hours, Tramadol 100mg q6 hours, hold Dilaudid. 3. DVT Prophylaxis: ASA 325mg daily, mobilization 4. Disposition: Plan for discharge home/transfer to SNF Thursday. 5. Medical Issues: Hospitalist involved. No new ortho problems. Stable. Desmond Nielsen MD
[2016-10-18] MEDS ORDERED: BISACODYL 10 MG SUP PR PRN (12:54)
--- NOTE | 2016-10-18 16:17 | PDOC43 ---
- Subjective Chief Complaint: R PAKO 10/[address] Nielsen Doing well, pain controlled, has no concerns Subjective: Reports Pain Tolerable, Reports Tolerating Diet Well, Reports Adequate Oral Intake, Reports Urinating Without Difficulty, Denies Shortness of Breath, Denies Cough, Denies Chest Pain, Denies Abdominal Pain, Denies Nausea, Denies Vomiting - Objective Vital Signs Temperature 98.0 F 10/18/16 15:10 Pulse Rate 80 10/18/16 15:10 Respiratory Rate 18 10/18/16 15:10 Blood Pressure 110/66 10/18/16 15:10 O2 Saturation by Pulse Oximetry 93 10/18/16 15:10 Oxygen Delivery Method Room Air Oxygen Flow Rate 0 Intake and Output 10/16/16 10/17/16 10/18/16 23:59 23:59 23:59 Intake Total 4933 3396 1360 Output Total 7122 5900 1432 [facility] -2137 -2504 -72 General: Alert, Oriented x3, Cooperative, Other (morbidly obese), No Acute Distress HEENT: Atraumatic, Mucous membr. moist/pink Lungs: Clear to Auscultation Bilaterally, Normal Air Movement Cardiovascular: Regular Rate and Rhythm, Normal S1, Normal S2 Abdomen: Soft, Mild Distention, No Rigid, No Tenderness, No Rebounding Extremities: Edema, No Cyanosis, No Tenderness Neurological: Normal Speech Psych/Mental Status: Normal Mood Laboratory 10/18/16 05:30 10/16/16 05:30 10/18/16 10/18/16 10/17/16 12:48 07:27 23:21 POC Capillary Glucose 150 H 183 H 135 H 10/17/16 18:06 POC Capillary Glucose 122 H Current Medications: Current meds reviewed in EMR. - Problems: Assessment/Plan (1) Status post total hip replacement, right Status: Acute Assessment/Plan: Appreciate ortho, PT/OT and nursing care. Appears to be doing well. Post-op Day 3, working with therapy (2) Acute blood loss anemia Status: Acute Assessment/Plan: moderate degree but stable and not symptomatic. (3) Hypertension Qualifiers: Hypertension type: essential hypertension Qualifier Code: (I10) Essential (primary) hypertension Status: Chronic Assessment/Plan: Well controlled (4) Obesity, morbid, BMI 50 or higher Status: Chronic Assessment/Plan: With obesity/hypoventilation syndrome, complicates care. (5) DM2 (diabetes mellitus, type 2) Qualifiers: Diabetes mellitus complication status: without complication Diabetes mellitus fdc insulin use: without intermediate accountant use Qualifier Code: (E11.9 ) Type 2 diabetes mellitus without complications Status: Chronic Assessment/Plan: Metformin on hold, continue insulin. (6) GERD (gastroesophageal reflux disease) Qualifiers: Esophagitis presence: esophagitis presence not specified Qualifier Code : (K21.9) Gastro-esophageal reflux disease without esophagitis Status: Chronic Assessment/Plan: Change pantoprazole to PO (7) Hepatitis C Qualifiers: Viral hepatitis chronicity: unspecified Hepatic coma status: without hepatic coma Qualifier Code: (B19.20) Unspecified viral hepatitis C without hepatic coma Status: Chronic Assessment/Plan: INR normal. VTE Prophylaxis: aspirin for VTE prophylaxis. and foot pumps while in hospital Disposition: Anticipating transfer to [facility] Friday 10/20
[2016-10-19] MEDS: OXYCODONE HCL 5 MG TABLET PO PRN ×7 (00:25→23:46)
[2016-10-19] MEDS: ACETAMINOPHEN 500 MG TABLET PO SCH ×4 (03:40→22:34)
[2016-10-19] MEDS: OXYCODONE HCL 10 MG TAB.SR PO SCH ×2 (08:30→20:42)
[2016-10-19] MEDS: LISINOPRIL 20 MG TABLET PO SCH (08:32)
[2016-10-19] MEDS: HYDROCHLOROTHIAZIDE 25 MG TABLET PO SCH (08:32)
[2016-10-19] MEDS: PANTOPRAZOLE 40 MG TABLET DR PO SCH (08:32)
[2016-10-19] MEDS: ASCORBIC ACID 500 MG TABLET PO SCH ×2 (08:32→20:42)
[2016-10-19] MEDS: ASPIRIN (ENTERIC COATED) 325 MG TABLET.EC PO SCH (08:32)
[2016-10-19] MEDS: DOCUSATE SODIUM 100 MG CAPSULE PO SCH ×2 (08:33→20:41)
[2016-10-19] MEDS: MULTIVITAMINS 1 TAB TABLET PO SCH (08:33)
[2016-10-19] MEDS: FERROUS SULFATE (65 Fe) 325 MG TABLET PO SCH ×2 (08:33→20:42)
[2016-10-19] MEDS: CLOTRIMAZOLE 1% 15 APPLIC/15 G CREAM TP SCH ×2 (09:13→22:37)
--- NOTE | 2016-10-19 10:15 | PDOC43 ---
- Subjective Findings: Doing well this AM, pain control improved, felt great when he woke up, wants to work with PT today. Subjective: Reports Flatus, Reports Pain Tolerable, Denies Chest Pain, Denies Shortness of Breath - Objective Vital Signs Temperature 97.7 F 10/19/16 07:00 Pulse Rate 85 10/19/16 07:00 Respiratory Rate 12 10/19/16 07:00 Blood Pressure 130/76 10/19/16 07:00 O2 Saturation by Pulse Oximetry 95 10/19/16 07:00 Oxygen Delivery Method Room Air Oxygen Flow Rate 0 Laboratory 10/18/16 05:30 10/16/16 05:30 10/19/16 10/18/16 10/18/16 07:28 21:22 17:16 POC Capillary Glucose 167 H 146 H 158 H 10/18/16 12:48 POC Capillary Glucose 150 H Active Medication Orders Category Date Time Status Acetaminophen [Tylenol] Med 10/15/16 16:00 Active 1,000 mg PO Q6H Ascorbic Acid [Vitamin C] Med 10/15/16 21:00 Active 500 mg PO BID Aspirin (Enteric Coated) [Ecotrin] Med 10/16/16 09:00 Active 325 mg PO DAILY Bisacodyl [Dulcolax] Med 10/18/16 12:54 Active 10 mg [place] DAILY PRN Calcium Carbonate [Tums] Med 10/15/16 15:05 Active 1,000 - 2,000 mg PO Q2H PRN Clotrimazole 1% Top Cream [Lotrimin] Med 10/15/16 21:00 Active 1 applic TP BID Docusate Sodium [Colace] Med 10/15/16 21:00 Active 100 mg PO BID FERROUS SULFATE (65 Fe) [Ferrous Sulfate] Med 10/16/16 09:00 Active 325 mg PO BID Hydrochlorothiazide Med 10/16/16 09:00 Active 25 mg PO DAILY Hydromorphone HCl [Dilaudid] Med 10/15/16 15:05 Active 0.5 mg IV Q1H PRN Hydroxyzine Pamoate [Vistaril] Med 10/15/16 15:05 Active 25 - 50 mg PO Q4H PRN Insulin Aspart (Dose) [Novolog (Dose)] Med 10/15/16 17:14 Active See Protocol SUB-Q Q6HR PRN Lisinopril [Prinivil] Med 10/16/16 09:00 Active 40 mg PO DAILY Magnesium Hydroxide [Milk of Magnesia] Med 10/16/16 12:54 Active 30 ml PO DAILY PRN Multivitamins [One-A-Day] Med 10/16/16 09:00 Active 1 tab PO DAILY Ondansetron 4 mg/2ml Vial [Zofran] Med 10/15/16 15:05 Active 4 - 6 mg IV Q6H PRN Oxycodone HCl [Roxicodone] Med 10/18/16 10:17 Active 10 - 20 mg PO Q3H PRN Oxycodone Sr [Oxycontin] Med 10/16/16 08:08 Active 20 mg PO Q12HR Pantoprazole Sodium [Protonix] Med 10/17/16 16:00 Active 40 mg PO DAILY Sodium Chloride 0.9% Flush [Normal Saline 10ml Flush] Med 10/15/16 15:05 Active 10 - 50 ml IV PRN PRN Sodium Chloride 0.9% Flush [Normal Saline 10ml Flush] Med 10/15/16 17:00 Active 10 ml IV Q8HR Tramadol HCl [Ultram] Med 10/16/16 08:08 Active 100 mg PO Q6H PRN Trazodone HCl [Desyrel] Med 10/15/16 15:05 Active 25 mg PO BEDTIME PRN Intake and Output 10/17/16 10/18/16 10/19/16 23:59 23:59 23:59 Intake Total 3396 1840 700 Output Total 0836 8855 1050 Balance -2504 -542 -350 General: Afebrile, No Acute Distress HEENT: EOMI Abdomen: Soft, No Tenderness Skin: Normal Color, Warm, Dry, Intact Neurological: Grossly Intact, Alert, Oriented x 4, Normal Speech Psych/Mental Status: Normal Affect, Normal Mood - Right Lower Extremity Incision: Dressing Clean/Dry/Intact, Well Approximated, [place] Intact, No Drainage, No Erythema, No Rash, No Ecchymosis Motor: Extensor Hallucis Longus: 5/5, Tibialis Anterior: 5/5, Gastrocnemius: 5/5 , Peroneals: 5/5, Quadriceps: 4/5 Gross Sensation to Light Touch: Present: Deep Peroneal Nerve, Superficial Peroneal Nerve, Medial Plantar Nerve, Lateral Plantar Nerve, Sural Nerve, Saphenous Nerve Capillary Refill: < 3 Seconds - Problems (1) Status post total hip replacement, right Status: Acute - Additional Comments POD4 after Right PAKO 1. Physical Therapy: WBAT with [facility], Continue to mobilize for discharge/transfer Thursday. 2. Pain Control: Multimodal pain control as needed. 3. DVT Prophylaxis: ASA 325mg daily, mobilization 4. Disposition: Plan for discharge home/transfer to SNF Thursday. 5. Medical Issues: Hospitalist involved. No new ortho problems. Stable. Desmond Nielsen MD
--- NOTE | 2016-10-19 13:48 | PDOC43 ---
- Subjective Chief Complaint: R PAKO 10/[address] Nielsen Sleeping in recliner, no complaints when woken. - Objective Vital Signs Temperature 97.7 F 10/19/16 11:31 Pulse Rate 80 10/19/16 11:31 Respiratory Rate 12 10/19/16 11:31 Blood Pressure 114/71 10/19/16 11:31 O2 Saturation by Pulse Oximetry 95 10/19/16 11:31 Oxygen Delivery Method Room Air Oxygen Flow Rate 0 Intake and Output 10/18/16 10/19/16 10/20/16 06:59 06:59 06:59 Intake Total 2760 1180 Output Total 4756 1999 -2021 General: Alert, Oriented x3, Cooperative, No Acute Distress HEENT: Mucous membr. moist/pink Lungs: Clear to Auscultation Bilaterally Cardiovascular: Regular Rate and Rhythm Abdomen: Soft, Normal Bowel Sounds, No Tenderness, No Masses Extremities: Normal Pulses, No Edema Neurological: Normal Speech Psych/Mental Status: Normal Mood Laboratory 10/18/16 05:30 10/16/16 05:30 10/19/16 10/19/16 10/18/16 12:00 07:28 21:22 POC Capillary Glucose 116 H 167 H 146 H 10/18/16 17:16 POC Capillary Glucose 158 H Current Medications: Current meds reviewed in EMR. - Problems: Assessment/Plan (1) Status post total hip replacement, right Status: Acute Assessment/Plan: Appreciate ortho, PT/OT and nursing care. Appears to be doing well. Post-op Day 4, working with therapy (2) Hypertension Qualifiers: Hypertension type: essential hypertension Qualifier Code: (I10) Essential (primary) hypertension Status: Chronic Assessment/Plan: Well controlled (3) Obesity, morbid, BMI 50 or higher Status: Chronic Assessment/Plan: With obesity/hypoventilation syndrome, complicates care. (4) Acute blood loss anemia Status: Acute Assessment/Plan: moderate degree but stable and not symptomatic. (5) DM2 (diabetes mellitus, type 2) Qualifiers: Diabetes mellitus complication status: without complication Diabetes mellitus care home insulin use: without intermediate accountant use Qualifier Code: (E11.9 ) Type 2 diabetes mellitus without complications Status: Chronic Assessment/Plan: Metformin on hold, continue insulin. (6) GERD (gastroesophageal reflux disease) Qualifiers: Esophagitis presence: esophagitis presence not specified Qualifier Code : (K21.9) Gastro-esophageal reflux disease without esophagitis Status: Chronic Assessment/Plan: On pantoprazole PO VTE Prophylaxis: aspirin for VTE prophylaxis. and foot pumps while in hospital Disposition: Anticipating transfer to [facility] Friday 10/20
[2016-10-19] MEDS: INSULIN ASPART (DOSE) 100 UNITS/1 ML SUB-Q PRN (17:39)
[2016-10-20] MEDS: ACETAMINOPHEN 500 MG TABLET PO SCH ×2 (03:44→09:37)
[2016-10-20] MEDS: OXYCODONE HCL 5 MG TABLET PO PRN ×3 (03:45→11:37)
--- NOTE | 2016-10-20 07:34 | PDOC43 ---
- Subjective Chief Complaint: R PAKO 10/[address] Nielsen doing well - Objective Vital Signs Temperature 97.9 F 10/20/16 03:46 Pulse Rate 84 10/20/16 03:46 Respiratory Rate 18 10/20/16 03:46 Blood Pressure 134/67 10/20/16 03:46 O2 Saturation by Pulse Oximetry 97 10/20/16 03:46 Oxygen Delivery Method Room Air Oxygen Flow Rate 0 Intake and Output 10/19/16 10/20/16 10/21/16 06:59 06:59 06:59 Intake Total 1180 1850 Output Total 1999 9421 500 Balance -820 -875 -500 General: Alert Laboratory 10/18/16 05:30 10/16/16 05:30 10/19/16 10/19/16 10/19/16 22:01 17:31 12:00 POC Capillary Glucose 157 H 219 H 116 H 10/19/16 07:28 POC Capillary Glucose 167 H Current Medications: Current meds reviewed in EMR. - Problems: Assessment/Plan (1) Status post total hip replacement, right Status: Acute Assessment/Plan: Appreciate ortho, PT/OT and nursing care. Appears to be doing well. Post-op Day 5, working with therapy (2) Hypertension Qualifiers: Hypertension type: essential hypertension Qualifier Code: (I10) Essential (primary) hypertension Status: Chronic Assessment/Plan: Well controlled (3) Obesity, morbid, BMI 50 or higher Status: Chronic Assessment/Plan: With obesity/hypoventilation syndrome, complicates care. (4) Acute blood loss anemia Status: Acute Assessment/Plan: moderate degree but stable and not symptomatic. (5) DM2 (diabetes mellitus, type 2) Qualifiers: Diabetes mellitus complication status: without complication Diabetes mellitus termination clerk insulin use: without termination clerk use Qualifier Code: (E11.9 ) Type 2 diabetes mellitus without complications Status: Chronic Assessment/Plan: Resume metformin on discharge (6) GERD (gastroesophageal reflux disease) Qualifiers: Esophagitis presence: esophagitis presence not specified Qualifier Code : (K21.9) Gastro-esophageal reflux disease without esophagitis Status: Chronic Assessment/Plan: On pantoprazole PO VTE Prophylaxis: aspirin for VTE prophylaxis. and foot pumps while in hospital Disposition: discharge to [facility] today 10/20
[2016-10-20 08:54] VITALS: BP 132/67
--- NOTE | 2016-10-20 08:54 | PDOC43 ---
- Subjective Findings: POD5 after Right PAKO. No new complain today. Subjective: Reports Pain Tolerable, Denies Chest Pain, Denies Shortness of Breath, Denies Nausea, Denies Vomiting - Objective Vital Signs Temperature 97.9 F 10/20/16 03:46 Pulse Rate 84 10/20/16 03:46 Respiratory Rate 18 10/20/16 03:46 Blood Pressure 134/67 10/20/16 03:46 O2 Saturation by Pulse Oximetry 97 10/20/16 08:20 Oxygen Delivery Method Room Air Oxygen Flow Rate 0 Laboratory 10/18/16 05:30 10/16/16 05:30 10/20/16 10/19/16 10/19/16 08:22 22:01 17:31 POC Capillary Glucose 123 H 157 H 219 H 10/19/16 12:00 POC Capillary Glucose 116 H Active Medication Orders Category Date Time Status Acetaminophen [Tylenol] Med 10/15/16 16:00 Active 1,000 mg PO Q6H Ascorbic Acid [Vitamin C] Med 10/15/16 21:00 Active 500 mg PO BID Aspirin (Enteric Coated) [Ecotrin] Med 10/16/16 09:00 Active 325 mg PO DAILY Bisacodyl [Dulcolax] Med 10/18/16 12:54 Active 10 mg SC DAILY PRN Calcium Carbonate [Tums] Med 10/15/16 15:05 Active 1,000 - 2,000 mg PO Q2H PRN Clotrimazole 1% Top Cream [Lotrimin] Med 10/15/16 21:00 Active 1 applic TP BID Docusate Sodium [Colace] Med 10/15/16 21:00 Active 100 mg PO BID FERROUS SULFATE (65 Fe) [Ferrous Sulfate] Med 10/16/16 09:00 Active 325 mg PO BID Hydrochlorothiazide Med 10/16/16 09:00 Active 25 mg PO DAILY Hydromorphone HCl [Dilaudid] Med 10/15/16 15:05 Active 0.5 mg IV Q1H PRN Hydroxyzine Pamoate [Vistaril] Med 10/15/16 15:05 Active 25 - 50 mg PO Q4H PRN Insulin Aspart (Dose) [Novolog (Dose)] Med 10/15/16 17:14 Active See Protocol SUB-Q Q6HR PRN Lisinopril [Prinivil] Med 10/16/16 09:00 Active 40 mg PO DAILY Magnesium Hydroxide [Milk of Magnesia] Med 10/16/16 12:54 Active 30 ml PO DAILY PRN Multivitamins [One-A-Day] Med 10/16/16 09:00 Active 1 tab PO DAILY Ondansetron 4 mg/2ml Vial [Zofran] Med 10/15/16 15:05 Active 4 - 6 mg IV Q6H PRN Oxycodone HCl [Roxicodone] Med 10/18/16 10:17 Active 10 - 20 mg PO Q3H PRN Oxycodone Sr [Oxycontin] Med 10/16/16 08:08 Active 20 mg PO Q12HR Pantoprazole Sodium [Protonix] Med 10/17/16 16:00 Active 40 mg PO DAILY Sodium Chloride 0.9% Flush [Normal Saline 10ml Flush] Med 10/15/16 15:05 Active 10 - 50 ml IV PRN PRN Sodium Chloride 0.9% Flush [Normal Saline 10ml Flush] Med 10/15/16 17:00 Active 10 ml IV Q8HR Tramadol HCl [Ultram] Med 10/16/16 08:08 Active 100 mg PO Q6H PRN Trazodone HCl [Desyrel] Med 10/15/16 15:05 Active 25 mg PO BEDTIME PRN Intake and Output 10/18/16 10/19/16 10/20/16 23:59 23:59 23:59 Intake Total 1840 1970 580 Output Total 2382 0816 1000 Balance -542 -3795 -420 General: Afebrile Lungs: Normal Air Movement Skin: Normal Color, Warm, Dry - Right Lower Extremity Incision: Dressing Clean/Dry/Intact, Well Approximated, Mike Intact, No Erythema, No Rash Motor: Extensor Hallucis Longus: 5/5, Tibialis Anterior: 5/5 Gross Sensation to Light Touch: Present: Deep Peroneal Nerve, Superficial Peroneal Nerve - Problems (1) Status post total hip replacement, right Status: Acute - Additional Comments POD5 after Right PAKO 1. Physical Therapy: WBAT with [facility], Continue to mobilize for discharge/transfer Thursday. 2. Pain Control: Multimodal pain control as needed. 3. DVT Prophylaxis: ASA 325mg daily, mobilization 4. Disposition: Plan for discharge home/transfer to SNF today. 5. Medical Issues: Hospitalist involved. No new ortho problems. Stable. Desmond Nielsen MD
[2016-10-20] MEDS: HYDROCHLOROTHIAZIDE 25 MG TABLET PO SCH (09:36)
[2016-10-20] MEDS: DOCUSATE SODIUM 100 MG CAPSULE PO SCH (09:36)
[2016-10-20] MEDS: LISINOPRIL 20 MG TABLET PO SCH (09:36)
[2016-10-20] MEDS: OXYCODONE HCL 10 MG TAB.SR PO SCH (09:36)
[2016-10-20] MEDS: PANTOPRAZOLE 40 MG TABLET DR PO SCH (09:36)
[2016-10-20] MEDS: ASPIRIN (ENTERIC COATED) 325 MG TABLET.EC PO SCH (09:36)
[2016-10-20] MEDS: ASCORBIC ACID 500 MG TABLET PO SCH (09:37)
[2016-10-20] MEDS: CLOTRIMAZOLE 1% 15 APPLIC/15 G CREAM TP SCH (09:37)
[2016-10-20] MEDS: MULTIVITAMINS 1 TAB TABLET PO SCH (09:37)
[2016-10-20] MEDS: FERROUS SULFATE (65 Fe) 325 MG TABLET PO SCH (09:45)
--- NOTE | 2016-10-20 09:47 | OP ---
Ken DAMICO : 1965 [id number] DATE OF SERVICE: October 15, 2016 PREOPERATIVE DIAGNOSIS: Right hip osteoarthritis. POSTOPERATIVE DIAGNOSIS: Right hip osteoarthritis. PROCEDURE PERFORMED: RIGHT TOTAL HIP ARTHROPLASTY. SURGEON: Desmond Nielsen M.D. STATISTICS INTERN: Charbel Teague P.A.-C. ANESTHESIA: Janine SaeedR.N.A., spinal plus LMA. SPECIMENS: No material was sent to the laboratory. ESTIMATED BLOOD LOSS: 500 mL. FLUIDS REPLACED: 3500 mL of crystalloid. URINE OUTPUT: 270 mL. TOURNIQUET: None. IMPLANTS: DePuy TriLock size 9 stem with high offset with a +8.5 40 mm Biolox head and a 62 mm DePuy Sublimity cluster hole cup with a single screw and a +4 10 degree lipped liner for a 62 cup and a 40 head. INDICATIONS: Patient is a 51-year-old male with long-standing right hip osteoarthritis which has failed to respond to a course of nonoperative measures. Patient has exam and radiographic findings, which support this diagnosis. In order to restore patient's ability to participate in desired level of activities they were offered a total hip arthroplasty. The risks, benefits and alternatives of therapy were discussed with the patient at length and they elected to proceed with surgery. The patient underwent preoperative clearances. Informed consent was obtained and documented in the chart and the patient was placed on the schedule at the first available convenience. DESCRIPTION OF PROCEDURE: The patient was identified in the pre-operative holding area where they were marked with an indelible marker by the operating surgeon. Patient was taken to the operating room where they underwent a spinal anesthetic and then was positioned on the left side using a pegboard for intraoperative positioning. An axillary roll was placed and all bony prominences were padded. The patient was prepped and draped in the usual sterile fashion for surgery and received perioperative antibiotics and tranexamic acid. A final operative time out was performed and confirmed by all members of the operative team. A standard posterior approach to the hip was used with dissection carried down to the fascia overlying the greater trochanter. The fascia was divided and a Charnley retractor was placed. The trochanteric bursa was excised. The sciatic nerve was identified and protected throughout the procedure. The leg was taken into internal rotation and the piriformis tendon with elevated out of the piriformis fossa and tagged for later repair and then an L-shaped arthrotomy was made dividing the capsule as far anteriorly as we could get on the neck and then taking up a posterior flap that involved the posterior capsule and the remainder of the short external rotators. At this point the hip was dislocated posteriorly and the level of our neck cut was marked out with a neck cut to guide. A neck cut was made with an oscillating saw and the head was excised. The anterior capsule was excised using a Bovie as was the entirety of the labrum and anterior and posterior and inferior retractors were placed. We started reaming with a 52 mm reamer to get medial to the true floor of the acetabulum and then reamed up to a 61 mm which gave us a good circumferential bleeding bone and appropriate fit. A 61 mm trial was placed and we were satisfied with the fit of the acetabulum. This was exchanged then for a 62 mm Sublimity cup with cluster holes. This was impacted in place and had excellent stability and position. Some overhanging bone in the anterior portion of the cup was excised using an osteotome and then a domed hole plug was placed and the neutral liner was impacted into the cup. At this point the anterior, posterior and inferior retractors were removed. The femoral neck elevator was placed and access to the proximal femur was obtained using a box osteotome and a canal finder. We broached up until we had good rotational and a longitudinal stability with a size 9 broach and then trialed off of that broach eventually settling on a standard offset with a 40 mm head at +8.5 neck length. This gave us excellent stability throughout. Anatomic range of motion did not show excessive tightness in extension, showed no tightness in the sciatic nerve and appropriately matched the opposite leg length. At this point all the trials were removed from the femur. The canal was copiously irrigated with a pulse lavage and the final stem was impacted into place. A 40 mm +8.5 Biolox head was then tapped on to the trunnion and the hip was reduced. Again, we were satisfied with our range of motion, leg length and stability. Three drill holes were made in the posterior, superior greater trochanter and the sutures that had been previously placed in the piriformis and the posterior capsule were used to repair these structures back to the femur. The hip was placed into a slightly abducted and externally rotated position. The Charnley retractors were removed. Everything was copiously irrigated with sterile saline and we closed the fascia with a running #0 Quill, the subcutaneous fat with a running #0 Vicryl, the subcutaneous tissues with interrupted sutures of #2-0 Vicryl and the skin with wes. A sterile dressing of Xeroform, fluffs, ABDs and Medipore tape was applied. The drapes were removed. The patient was repositioned supine, transferred to a stretcher and taken postoperatively to the post anesthesia care unit in stable condition. There were no observed intraoperative conditions during this procedure. Job [id number] Cc: Elliott Danika
--- NOTE | 2016-10-30 16:56 | PDOC5 ---
ADMIT DATE: 10/15/16 DISCHARGE DATE: 10/20/16 ADMISSION DIAGNOSES: right hip osteoarthritis PROCEDURES PERFORMED THIS HOSPITALIZATION: right total hip arthroplasty SURGEON:Desmond Nielsen MD CONSULTATIONS: PT/OT/Care Mgmt/Hospitalist BRIEF HISTORY:This is a 51 year old male patient with activity-limiting right hip osteoarthritis which has failed to respond adequately to a course of nonoperative measures. After a discussion of the risks, benefits, and alternatives of ongoing therapies, patient elected to proceed with right total hip arthroplasty. The patient underwent standard preoperative clearance and education, and presented to the hospital on the scheduled date for surgery. BRIEF HOSPITAL COURSE: Patient tolerated the procedure without complication and was admitted postoperatively for observation, pain control, and rehabilitation. Patient had an uncomplicated hospital course; see daily notes for details. Primarily due to placement challenges, patient remained in the hospital until 5 days postop. He progressed appropriately with Physical Therapy. On POD#5 patient met all criteria for discharge and was discharged to Nursing Home for ongoing rehabilitation. Follow-up appointments for outpatient Physical Therapy and Orthopedics were provided at the time of discharge. Patient restarted preoperative medications, and received prescriptions for postoperative pain medications, a stool softener, and DVT prophylaxis. Desmond Nielsen MD - Discharge Diagnosis (1) Status post total hip replacement, right Status: Acute - Discharge Plan Disposition: Nursing Home Facility Additional Instructions: PROCEDURE: Right total hip arthroplasty (replacement) 1.) Dressings: may remove dressings on POD#4 and shower normally, let water run over incision and pat dry, but do not submerge or scrub incision. Cover with clean dressing and then change dressing every day until completely dry. 2.) Activity: may bear weight as tolerated with assistive device at all times. Outpatient PT as previously scheduled. Daily exercises as instructed by PT. Posterior hip precautions at all times as instructed. 3.) Medications: a.) Oxycontin: long-acting pain medication taken morning and evening for 10 days, no refills b.) Tramadol: as-needed pain medication for mild to moderate breakthrough pain (call for refills 3-4 days before running out) c.) Oxycodone: as-needed pain medication for severe breakthrough pain (call for refills 3-4 days before running out) d.) Aspirin 325 mg (over-the counter): one tab daily for 4 weeks for prevention of blood clots e.) Colace: stool softener to help prevent constipation, taken twice a day as long as you are on narcotics; if continued constipation, get Magnesium Citrate [id number] and use per instructions every 12 hours until you have a bowel movement. 4.) Followup: Oct 28 at 1:30 PM at the [facility]. Call [phone] to confirm your appointment. 5.) Questions: call my office ([phone]) with any questions or concerns. Go to ED or call 911 for any acute changes in health status or emergencies. Desmond Nielsen MD Prescriptions: Oxycodone Sr [OXYCONTIN 10 MG SR TABLET (SHF)] 20 mg PO Q12HR #40 tab.sr Oxycodone HCl [ROXICODONE 5 MG IR TABLET (SHF)] 5 - 15 mg PO Q3H PRN #120 tablet PRN Reason: Pain (Moderate) Tramadol HCl [ULTRAM 50 MG TABLET (SHF)] 100 mg PO Q6H PRN #120 tablet PRN Reason: Pain (Mild) Follow-Up: Charbel Teague PA [Physician Television [employer] Finisher] - 10/28/16 1:00 pm
== END 2016-10-20 13:40 | DRG 470 ==
LOC: OR 06:03 → MS 15:29 → ICU 16:25 → MS 10-16 12:38
PROVIDERS: ADMIT Orthopaedic Surgery; ATTEND Orthopaedic Surgery
PROC: 0SR904A Replacement of Right Hip Joint with Ceramic on Polyethylene Synthetic Substitute, Uncemented, Open Approach (ICD-10-PCS; principal; 2016-10-15)
DX: M16.11 Unilateral primary osteoarthritis, right hip (principal); M87.9 Osteonecrosis, unspecified; Z68.43 Body mass index [BMI] 50.0-59.9, adult; Z87.891 Personal history of nicotine dependence; E11.9 Type 2 diabetes mellitus without complications; E66.9 Obesity, unspecified; B19.20 Unspecified viral hepatitis C without hepatic coma; E66.01 Morbid (severe) obesity due to excess calories; M79.7 Fibromyalgia; Z59.0 Homelessness; Z79.84 Long term (current) use of oral hypoglycemic drugs; I10 Essential (primary) hypertension; R06.89 Other abnormalities of breathing; D53.9 Nutritional anemia, unspecified